=== PATIENT | male | born 1945 | race Caucasian/White ===

== ENCOUNTER 2023-03-31 17:10 | Inpatient (IN) | payer OTHER, MEDICAID ==
[~2023-03-31] VITALS: Ht 172.7 cm; Wt 65.3 kg
[2023-03-31 18:55] LABS: BASOPHILS # (AUTO) 0.1 K/uL (0.0-0.2); EOSINOPHILS % (AUTO) 0.4 % (0.0-6.0); HEMATOCRIT 34 % (39-51); LYMPHOCYTES # (AUTO) 0.8 K/uL (0.8-4.8); LYMPHOCYTES % (AUTO) 7.7 % (20.0-44.0); MEAN CORPUSCULAR HEMOGLOBIN 26 PG (26.0-33.0); MEAN CORPUSCULAR HGB CONC 33 g/dl (31.0-36.0); MEAN CORPUSCULAR VOLUME 81 fL (80-96); MONOCYTES # (AUTO) 0.5 K/uL (0.1-1.30); MONOCYTES % (AUTO) 4.6 % (2.0-12.0); NEUTROPHILS # (AUTO) 9.2 K/uL (1.8-8.9); NEUTROPHILS % (AUTO) 86.3 % (43.0-81.0); PLATELET COUNT (AUTO) 439 K/uL (150-450); RED BLOOD CELL COUNT(AUTO) 4.18 MIL/uL (4.5-6.0); RED CELL DISTRIBUTION WIDTH 15.7 % (11.5-15.0); WHITE BLOOD COUNT (AUTO) 10.7 K/uL (4.3-11.0)
[2023-03-31 19:09] LABS: CALCIUM, SERUM 9.1 mg/dL (8.5-10.1); CREATININE 1.2 mg/dL (0.6-1.3); POTASSIUM 3.4 mmol/L (3.5-5.1)
[2023-03-31 19:16] LABS: ALBUMIN 2.9 g/dL (3.4-5.0); BILIRUBIN,DIRECT 0.1 mg/dL (0.0-0.2); BILIRUBIN,TOTAL 0.3 mg/dL (0.2-1.0)
[2023-03-31] MEDS ORDERED: HYDROCODONE/APAP 10/325MG TABLET PO PRN (20:00)
[2023-03-31] MEDS ORDERED: ACETAMINOPHEN 325 MG TABLET PO PRN (20:00)
[2023-03-31] MEDS ORDERED: ONDANSETRON HCL/PF 4 MG/2 ML VIAL IVP PRN (20:00)
[2023-03-31] MEDS ORDERED: MAG HYDROX/AL HYDROX/SIMETH 30 ML UDC PO PRN (20:00)
[2023-03-31] MEDS ORDERED: MAGNESIUM HYDROXIDE 30 ML UDC PO PRN (20:00)
[2023-03-31] MEDS ORDERED: Z GUARD REMEDY 4 OZ OINT TP PRN (20:00)
[2023-03-31] MEDS ORDERED: TEMAZEPAM 15 MG CAPSULE PO PRN (20:00)
[2023-03-31] MEDS ORDERED: AZITHROMYCIN 500 MG in IV D5W 250 ML IV ONE (22:00)
[2023-03-31] MEDS ORDERED: CEFTRIAXONE 1 G in IV D5W 50 ML IV ONE (22:00)
[2023-03-31] MEDS ORDERED: AZITHROMYCIN 500 MG VIAL ONE (22:35)
[2023-03-31] MEDS ORDERED: CEFTRIAXONE 1 G VIAL ONE (22:35)
[2023-04-01] MEDS: IV NS 0.9% 1,000 ML IV PRN ×2 (00:25→19:16)
[2023-04-01] MEDS: ENOXAPARIN SODIUM 40 MG/0.4 ML DISP.SYRIN SQ SCH ×2 (00:49→20:59)
[2023-04-01 01:04] VITALS: BP 173/86; TEMP 97.7; O2SAT 93
[2023-04-01 01:07] LABS: APPEARANCE,URINE CLEAR (CLEAR); BILIRUBIN,URINE NEGATIVE (NEGATIVE); BLOOD, URINE TRACE-INTA Ery/uL (NEGATIVE); COLOR,URINE YELLOW (YELLOW); KETONES,URINE 1+ mg/dL (NEGATIVE); LEUKOCYTE ESTERASE ,URINE NEGATIVE (NEGATIVE); NITRITE, URINE NEGATIVE (NEGATIVE); PROTEIN,URINE 1+ mg/dl (NEGATIVE); UGLUCOSE NEGATIVE (NEGATIVE)
[2023-04-01 01:18] LABS: ADD URINE CULTURE NO; BACTERIA,URINE None seen /HPF (None Seen); RBC,URINE 0-2 /HPF (0-2); WBC,URINE NONE SEEN /HPF (0-3)
[2023-04-01 01:19] LABS: MUCUS,URINE Few /LPF (None Seen); SQUAMOUS EPITHELIAL CELL,UR None Seen /HPF (None Seen)
[2023-04-01 01:24] VITALS: BP 173/87; TEMP 97.7; O2SAT 93
[2023-04-01 06:52] LABS: CALCIUM, SERUM 8.5 mg/dL (8.5-10.1); CARBON DIOXIDE 27 mmol/L (21-32); CHLORIDE 101 mmol/L (98-107); GLUCOSE 99 mg/dL (74-106); POTASSIUM 3.2 mmol/L (3.5-5.1); SODIUM SERUM 138 mmol/L (136-145); UREA NITROGEN, BLOOD 13 mg/dL (7-18)
[2023-04-01 06:53] LABS: CHOLESTEROL 177 mg/dL (<200); HDL CHOLESTEROL 64 mg/dL (40-60); LDL 82 mg/dL (0-99); THYROID STIMULATING HORMONE 3.002 uIU/mL (0.358-3.74); TRIGLYCERIDES 106 mg/dL (30-150)
[2023-04-01 06:55] LABS: BASOPHILS % (AUTO) 0.3 % (0.0-2.0); EOSINOPHILS # (AUTO) 0.3 K/uL (0.0-0.7); EOSINOPHILS % (AUTO) 3.1 % (0.0-6.0); HEMATOCRIT 30 % (39-51); LYMPHOCYTES # (AUTO) 1.4 K/uL (0.8-4.8); LYMPHOCYTES % (AUTO) 15.9 % (20.0-44.0); MEAN CORPUSCULAR HEMOGLOBIN 27 PG (26.0-33.0); MEAN CORPUSCULAR HGB CONC 33 g/dl (31.0-36.0); MEAN CORPUSCULAR VOLUME 81 fL (80-96); MONOCYTES # (AUTO) 0.6 K/uL (0.1-1.30); MONOCYTES % (AUTO) 6.8 % (2.0-12.0); NEUTROPHILS # (AUTO) 6.7 K/uL (1.8-8.9); NEUTROPHILS % (AUTO) 73.9 % (43.0-81.0); PLATELET COUNT (AUTO) 395 K/uL (150-450); RED BLOOD CELL COUNT(AUTO) 3.75 MIL/uL (4.5-6.0); RED CELL DISTRIBUTION WIDTH 15.7 % (11.5-15.0); WHITE BLOOD COUNT (AUTO) 9.1 K/uL (4.3-11.0)
[2023-04-01 07:00] VITALS: BP 191/103; TEMP 97.5
[2023-04-01] MEDS ORDERED: POTASSIUM CHLORIDE 20 MEQ TAB.PRT.SR PO ONE (07:30)
[2023-04-01] MEDS: PANTOPRAZOLE 40 MG TABLET.DR PO SCH (08:07)
[2023-04-01] MEDS: ENSURE ENLIVE CHOC 237 ML CAN PO SCH ×2 (12:13→17:05)
[2023-04-01] MEDS: HYDROCODONE/APAP 5/325MG TABLET PO PRN (15:25)
[2023-04-01 16:00] VITALS: BP 175/97; TEMP 97.5; O2SAT 92
[2023-04-01 23:00] VITALS: BP 136/80; TEMP 98; O2SAT 98
[2023-04-02] MEDS: PANTOPRAZOLE 40 MG TABLET.DR PO SCH ×2 (07:30→08:51)
[2023-04-02 08:44] VITALS: BP 163/84; TEMP 97.5; O2SAT 96
[2023-04-02] MEDS: ENSURE ENLIVE CHOC 237 ML CAN PO SCH ×3 (08:48→16:37)
[2023-04-02 15:59] VITALS: BP 149/74; TEMP 98; O2SAT 97
[2023-04-02 20:00] VITALS: BP 187/93; TEMP 97.9; O2SAT 92
[2023-04-02] MEDS: ENOXAPARIN SODIUM 40 MG/0.4 ML DISP.SYRIN SQ SCH (20:37)
[2023-04-03] VITALS: BP 156/84
[2023-04-03 07:00] LABS: BASOPHILS % (AUTO) 0.6 % (0.0-2.0); EOSINOPHILS # (AUTO) 0.2 K/uL (0.0-0.7); EOSINOPHILS % (AUTO) 2.6 % (0.0-6.0); HEMATOCRIT 32 % (39-51); HEMOGLOBIN 10.4 g/dL (13.5-17.5); LYMPHOCYTES # (AUTO) 1.1 K/uL (0.8-4.8); LYMPHOCYTES % (AUTO) 13.4 % (20.0-44.0); MEAN CORPUSCULAR HEMOGLOBIN 27 PG (26.0-33.0); MEAN CORPUSCULAR HGB CONC 33 g/dl (31.0-36.0); MEAN CORPUSCULAR VOLUME 82 fL (80-96); MONOCYTES # (AUTO) 0.5 K/uL (0.1-1.30); MONOCYTES % (AUTO) 6.1 % (2.0-12.0); NEUTROPHILS # (AUTO) 6.4 K/uL (1.8-8.9); NEUTROPHILS % (AUTO) 77.3 % (43.0-81.0); PLATELET COUNT (AUTO) 368 K/uL (150-450); RED BLOOD CELL COUNT(AUTO) 3.88 MIL/uL (4.5-6.0); RED CELL DISTRIBUTION WIDTH 15.7 % (11.5-15.0); WHITE BLOOD COUNT (AUTO) 8.3 K/uL (4.3-11.0)
[2023-04-03 07:10] LABS: CALCIUM, SERUM 8.8 mg/dL (8.5-10.1); CREATININE 1.1 mg/dL (0.6-1.3); POTASSIUM 3.6 mmol/L (3.5-5.1)
[2023-04-03 08:00] VITALS: BP 169/94; TEMP 99.1; O2SAT 94
[2023-04-03] MEDS: ENSURE ENLIVE CHOC 237 ML CAN PO SCH ×3 (08:00→17:14)
[2023-04-03] MEDS ORDERED: AZIT250T PO (09:23)
[2023-04-03] MEDS ORDERED: MEGE40TA5 PO (09:27)
[2023-04-03] MEDS: PANTOPRAZOLE 40 MG TABLET.DR PO SCH (09:55)
[2023-04-03 16:00] VITALS: BP 152/80; TEMP 97.7; O2SAT 94
[2023-04-03 20:00] VITALS: BP 145/66; TEMP 98.4; O2SAT 95
[2023-04-03] MEDS: GUAIFENESIN LA 600 MG TABLET.SA PO SCH (20:18)
[2023-04-03] MEDS: ENOXAPARIN SODIUM 40 MG/0.4 ML DISP.SYRIN SQ SCH (20:20)
[2023-04-04 07:30] VITALS: BP 161/92; TEMP 98.1; O2SAT 94
[2023-04-04] MEDS: PANTOPRAZOLE 40 MG TABLET.DR PO SCH (08:21)
[2023-04-04] MEDS: ENSURE ENLIVE CHOC 237 ML CAN PO SCH ×3 (08:21→17:26)
[2023-04-04] MEDS: GUAIFENESIN LA 600 MG TABLET.SA PO SCH ×2 (09:13→20:36)
[2023-04-04 16:00] VITALS: BP 139/86; TEMP 97.1; O2SAT 94
[2023-04-04 20:00] VITALS: BP 154/87; TEMP 98.4
[2023-04-04] MEDS: ENOXAPARIN SODIUM 40 MG/0.4 ML DISP.SYRIN SQ SCH (20:36)
[2023-04-05] MEDS: GUAIFENESIN LA 600 MG TABLET.SA PO SCH ×2 (08:35→20:10)
[2023-04-05] MEDS: PANTOPRAZOLE 40 MG TABLET.DR PO SCH (08:35)
[2023-04-05] MEDS: ENSURE ENLIVE CHOC 237 ML CAN PO SCH ×3 (08:36→16:51)
[2023-04-05 08:42] VITALS: BP 170/88; TEMP 98.2; O2SAT 98
[2023-04-05] MEDS: CLONIDINE HCL 0.1 MG TABLET PO PRN (09:40)
[2023-04-05] MEDS: LISINOPRIL (20MG) 20 MG TABLET PO SCH (10:39)
[2023-04-05] MEDS: AMLODIPINE BESYLATE 5 MG TABLET PO SCH (10:39)
[2023-04-05 16:07] VITALS: BP 114/68; TEMP 97.9; O2SAT 95
[2023-04-05 20:00] VITALS: BP 137/69; TEMP 97.3; O2SAT 96
[2023-04-05] MEDS: ENOXAPARIN SODIUM 40 MG/0.4 ML DISP.SYRIN SQ SCH (20:11)
[2023-04-05] MEDS: HYDROCODONE/APAP 5/325MG TABLET PO PRN (22:36)
[2023-04-06 07:30] VITALS: BP 150/69; TEMP 98.2; O2SAT 95
[2023-04-06] MEDS: PANTOPRAZOLE 40 MG TABLET.DR PO SCH (08:27)
[2023-04-06] MEDS: GUAIFENESIN LA 600 MG TABLET.SA PO SCH (08:27)
[2023-04-06] MEDS: ENSURE ENLIVE CHOC 237 ML CAN PO SCH ×3 (08:28→16:07)
[2023-04-06] MEDS ORDERED: POTASSIUM CHLORIDE 20 MEQ TAB.PRT.SR PO ONE (08:30)
[2023-04-06] MEDS: METFORMIN 500 MG TABLET PO SCH ×2 (08:57→16:06)
[2023-04-06] MEDS: AMLODIPINE BESYLATE 5 MG TABLET PO SCH (08:58)
[2023-04-06] MEDS: LISINOPRIL (20MG) 20 MG TABLET PO SCH (08:58)
[2023-04-06 16:00] VITALS: BP 134/67; TEMP 97.9; O2SAT 92
[2023-04-06 18:59] VITALS: BP 160/90
[2023-04-06] MEDS: CLONIDINE HCL 0.1 MG TABLET PO PRN (18:59)
[2023-04-07] MEDS ORDERED: SERTRALINE HCL 25 MG TABLET PO SCH (08:00)
== END 2023-04-06 19:40 | DRG 641 ==
LOC: ER 17:26 → MED 23:00
PROVIDERS: ADMIT Nurse Practitioner Acute Care; ATTEND Nurse Practitioner Family
DX: R62.7 Adult failure to thrive (principal); E44.0 Moderate protein-calorie malnutrition; F03.93 Unspecified dementia, unspecified severity, with mood disturbance; F03.94 Unspecified dementia, unspecified severity, with anxiety; D63.8 Anemia in other chronic diseases classified elsewhere; E87.6 Hypokalemia; W06.XXXA Fall from bed, initial encounter; Y92.009 Unspecified place in unspecified non-institutional (private) residence as the place of occurrence of the external cause; Z91.81 History of falling; R26.9 Unspecified abnormalities of gait and mobility; H54.7 Unspecified visual loss; F32.A Depression, unspecified; E11.65 Type 2 diabetes mellitus with hyperglycemia; E88.09 Other disorders of plasma-protein metabolism, not elsewhere classified; F41.9 Anxiety disorder, unspecified; Z87.891 Personal history of nicotine dependence; Z85.46 Personal history of malignant neoplasm of prostate; N40.0 Benign prostatic hyperplasia without lower urinary tract symptoms; G89.29 Other chronic pain; F10.21 Alcohol dependence, in remission; Y90.9 Presence of alcohol in blood, level not specified; F39 Unspecified mood [affective] disorder
CPT/HCPCS: 36415; 70450-TC; 71045-TC; 80048-TC; 80061-TC; 80076-TC; 81001; 83735-TC; 84100-TC; 84443-TC; 85025-TC; 87040-TC; 97110-TC; 97116-TC; 97530-TC; A4223; G0378; J0456; J0696; J1650; J7030; J7060